=== PATIENT | female | born 1980 | race Caucasian/White ===

== ENCOUNTER 2017-03-25 17:17 | Emergency (ER) | payer BC ==
--- NOTE | 2017-03-25 18:08 | RAD ---
TWO VIEWS CHEST 03/25/17 PROVIDED CLINICAL HISTORY: Chest pain. FINDINGS: Comparisons is made with the study dated 07/09/14. The cardiac and mediastinal silhouette is within normal limits. Lungs appear clear. No pleural fluid or pneumothorax apparent. IMPRESSION: No evidence for an acute cardiopulmonary process. POS: [facility]
[2017-03-25] MEDS ORDERED: Ketorolac Tromethamine 60 MG/2 ML VIAL ONE (20:22)
== END 2017-03-25 20:46 | disposition home or self-care (01) ==
LOC: ERS 17:17
DX: J40 Bronchitis, not specified as acute or chronic (principal)
CPT/HCPCS: 71020; 81025; 93005; 96372; J1885

== ENCOUNTER 2019-06-20 15:15 | Outpatient (CLI) | payer BC ==
--- NOTE | 2019-06-20 16:15 | MMO ---
Bilateral MAMMO Bilat Screen [facility]. CLINICAL HISTORY: Patient is 39 years old and is seen for screening. The patient has the following family history of breast cancer: mother, malignant (generic). The patient has no personal history of cancer. VIEWS: The views performed were: bilateral craniocaudal with tomosynthesis and bilateral mediolateral oblique with tomosynthesis. This study has been interpreted with the assistance of computer-aided detection. MAMMOGRAM FINDINGS: The breasts are heterogeneously dense, which could obscure a lesion on mammography. There are no suspicious masses, suspicious calcifications, or new areas of architectural distortion. IMPRESSION: THERE IS NO MAMMOGRAPHIC EVIDENCE OF MALIGNANCY. A ROUTINE FOLLOW-UP MAMMOGRAM AT AGE 41 IS RECOMMENDED. THE RESULTS OF THIS EXAM WERE SENT TO THE PATIENT. ACR BI-RADS Category 1 - Negative MAMMOGRAPHY NOTE: 1. A negative mammogram report should not delay a biopsy if a dominant of clinically suspicious mass is present. 2. Approximately 10% to 15% of breast cancers are not detected by mammography. 3. Adenosis and dense breasts may obscure an underlying neoplasm. Reported by: MIRNA GRIFFIN MD Electonically Signed: [id number]
== END 2019-06-20 15:16 | disposition home or self-care (01) ==
LOC: BICMAMMO 15:15
PROVIDERS: ATTEND Family Medicine
DX: Z12.31 Encounter for screening mammogram for malignant neoplasm of breast (principal); Z80.3 Family history of malignant neoplasm of breast
CPT/HCPCS: 77063; 77067

== ENCOUNTER 2021-11-15 21:37 | Emergency (ER) | payer BC ==
[2021-11-15] MEDS ORDERED: Aspirin Chewable 81 MG TAB ONE (22:38)
[2021-11-15 22:42] LABS: #Basophils 0.1 thou/uL (0.0-0.2); #Eosinphils 0.6 thou/uL (0.0-0.7); #Lymphocytes 2.8 thou/uL (1.20-3.40); #Monocytes 0.6 thou/uL (0.11-0.59); #Neutrophils 4.8 thou/uL (1.40-6.50); %Basophils 0.6 % (0.0-1.0); %Eosinophils 7.2 % (0.0-10.0); %Lymphocytes 31.7 % (21.0-51.0); %Monocytes 6.3 % (0.0-10.0); %Neutrophils 54.2 % (42.0-75.0); Hemoglobin 12.6 g/dL (12.0-16.0); Mean Corpuscular HGB CONC 33.9 g/dL (32.0-36.0); Mean Corpuscular Hemoglobin 29.2 pg (27.0-31.0); Mean Corpuscular Volume 86.3 fL (78.0-98.0); Mean Platelet Volume 7.5 fL (7.4-10.4); Platelet Count 322 thou/uL (130-400); RBC Distribution Width 12.7 % (11.5-14.5); Red Blood Cell (RBC) Count 4.32 mill/uL (4.20-5.40); White Blood Cell (WBC) Count 8.9 thou/uL (4.8-10.8)
[2021-11-15 23:04] LABS: ALT (SGPT) 13 U/L (8-55); AST (SGOT) 14 U/L (5-34); Albumin 3.9 g/dL (3.5-5.0); Alkaline Phosphatase 78 U/L (40-110); Anion Gap 14 mmol/L (10-20); BUN (Urea Nitrogen) 9 mg/dL (7.0-18.7); Bilirubin, Total 0.3 mg/dL (0.2-1.2); Calc. Creatinine Clearance 0 mL/min (70-130); Calcium 9.1 mg/dL (7.8-10.44); Carbon Dioxide 26 mmol/L (22-29); Chloride 104 mmol/L (98-107); Estimated GFR 93; Globulin 3.1 g/dL (2.4-3.5); Glucose 90 mg/dL (70-105); Potassium 3.7 mmol/L (3.5-5.1); Sodium 140 mmol/L (136-145)
[2021-11-15 23:18] LABS: PTT 29.6 sec (22.9-36.1)
== END 2021-11-16 02:26 | disposition home or self-care (01) ==
LOC: ERS 21:37
DX: R07.9 Chest pain, unspecified (principal)
CPT/HCPCS: 36415; 71045; 80053; 84484; 85025; 85610; 85730; 93005

== ENCOUNTER 2023-09-13 08:39 | Outpatient (CLI) | payer BC ==
[2023-09-13 09:27] LABS: Hematocrit 35.4 % (34.9-44.5)
[2023-09-13 09:35] LABS: BHCG - Serum Negative (NEGATIVE); Pregs Control Background? CLEAR/WHITE (CLR/WHITE); Pregs Control Bar Appear? YES (CONTROL BAR)
== END 2023-09-13 08:40 | disposition home or self-care (01) ==
LOC: LABBT 08:39
PROVIDERS: ATTEND Otolaryngology Plastic Surgery within the Head & Neck
DX: Z01.812 Encounter for preprocedural laboratory examination (principal); J34.2 Deviated nasal septum; J34.3 Hypertrophy of nasal turbinates; J32.0 Chronic maxillary sinusitis; J32.1 Chronic frontal sinusitis; J32.2 Chronic ethmoidal sinusitis
CPT/HCPCS: 84703; 85014

== ENCOUNTER 2023-09-15 06:06 | Day surgery (SDC) | payer BC ==
[2023-09-13 09:16] VITALS: BMI 32.5
[2023-09-15] MEDS ORDERED: Oxymetazoline HCl 0.05% (30 ML BOT) ONE ×2 (06:30→08:43)
[2023-09-15] MEDS ORDERED: fentaNYL PF 100 MCG/2 ML SYRINGE ONE (08:41)
[2023-09-15] MEDS ORDERED: PROPOFOL 40 ML ONE (08:41)
[2023-09-15] MEDS ORDERED: EPINEPHrine 1 MG/ML VIAL ONE (08:43)
[2023-09-15] MEDS ORDERED: Bacitracin Zinc Ointment 30 gm TUBE ONE (08:43)
[2023-09-15] MEDS ORDERED: Lidocaine 1% (PF) 30 ML VIAL ONE (08:44)
[2023-09-15] MEDS ORDERED: Lidocaine 1% PF 5 ML VIAL ONE (08:50)
[2023-09-15] MEDS ORDERED: Dexamethasone 20 MG/5 ML VIAL ONE (08:50)
[2023-09-15] MEDS ORDERED: Ondansetron PF 4 MG/2 ML Vial ONE (08:50)
[2023-09-15] MEDS ORDERED: Rocuronium Bromide 10 MG/ML (10ML VIAL) ONE (08:55)
[2023-09-15] MEDS ORDERED: PHENYLEPHRINE-NS 100 MCG/ML 10 ML SYRINGE ONE (08:55)
[2023-09-15] MEDS ORDERED: MINERAL OIL/WHITE PETROLATUM 3.5 GM TUBE ONE (09:01)
[2023-09-15] MEDS ORDERED: SUGAMMADEX SODIUM 200 MG/2 ML VIAL ONE (09:09)
[2023-09-15] MEDS ORDERED: fentaNYL 50 mcg/mL 1 mL Vial ONE ×3 (10:23→11:09)
[2023-09-15] MEDS ORDERED: HYDROcodone/Acetaminophen 5/325 mg Tablet ONE (11:54)
== END 2023-09-15 12:15 | disposition home or self-care (01) ==
LOC: SDC 06:06
PROVIDERS: ATTEND Otolaryngology Plastic Surgery within the Head & Neck
PROC: 09BV8ZZ Excision of Left Ethmoid Sinus, Via Natural or Artificial Opening Endoscopic (ICD-10-PCS; principal; 2023-09-15)
PROC: 09BS8ZZ Excision of Right Frontal Sinus, Via Natural or Artificial Opening Endoscopic (ICD-10-PCS; principal; 2023-09-15)
PROC: 09SM4ZZ Reposition Nasal Septum, Percutaneous Endoscopic Approach (ICD-10-PCS; principal; 2023-09-15)
PROC: 09BU8ZZ Excision of Right Ethmoid Sinus, Via Natural or Artificial Opening Endoscopic (ICD-10-PCS; principal; 2023-09-15)
PROC: 09BQ8ZZ Excision of Right Maxillary Sinus, Via Natural or Artificial Opening Endoscopic (ICD-10-PCS; principal; 2023-09-15)
PROC: 09BR8ZZ Excision of Left Maxillary Sinus, Via Natural or Artificial Opening Endoscopic (ICD-10-PCS; principal; 2023-09-15)
PROC: 09BT8ZZ Excision of Left Frontal Sinus, Via Natural or Artificial Opening Endoscopic (ICD-10-PCS; principal; 2023-09-15)
PROC: 09TL8ZZ Resection of Nasal Turbinate, Via Natural or Artificial Opening Endoscopic (ICD-10-PCS; principal; 2023-09-15)
DX: J34.3 Hypertrophy of nasal turbinates (principal); J34.2 Deviated nasal septum; J32.8 Other chronic sinusitis; J34.89 Other specified disorders of nose and nasal sinuses; J45.909 Unspecified asthma, uncomplicated; K21.9 Gastro-esophageal reflux disease without esophagitis; F41.9 Anxiety disorder, unspecified; Z79.899 Other long term (current) drug therapy; Z88.1 Allergy status to other antibiotic agents
CPT/HCPCS: J0171; J1100; J2001; J2405; J2704; J3010